=== PATIENT | female | born 1965 | race Caucasian/White ===

== ENCOUNTER 2016-07-24 12:21 | Observation (INO) | payer BC ==
[~2016-07-24] VITALS: Ht 165.1 cm; Wt 71.1 kg
[~2016-07-24 12:21] MED LIST: LOSA50TA6 PO; TYLOTC500 PO
[2016-07-24] MEDS ORDERED: ASPI81TA28 PO (12:41)
[2016-07-24] MEDS ORDERED: LOSA1TAB38 PO (12:41)
[2016-07-24 13:28] LABS: BASO % 0.3 %; BASO ABS # 0.02 K/uL (0-0.2); COMPLETE YES; EOS % 0.8 %; HEMATOCRIT 40.2 % (37-47); IG% 0.1 %; LYMPH % 29.7 %; LYMPH ABS # 2.28 K/uL (1.2-3.4); MEAN CELL VOLUME 81.5 fL (80-100); MEAN CORPUSCULAR HGB CONC 34.3 g/dl (32-36); MEAN PLATELET VOLUME 9.3 fL (7.4-10.4); MONO % 5.5 %; NEUT % 63.6 %; PLATELET COUNT 398 K/uL (130-400); RED BLOOD COUNT 4.93 M/uL (4.2-5.4); WHITE BLOOD COUNT 7.67 K/uL (4.8-10.8)
--- NOTE | 2016-07-24 13:31 | DIAGNOSTIC IMAGING REPORT ---
CT SCAN OF THE BRAIN WITHOUT IV CONTRAST CLINICAL HISTORY: Blurred vision. Slurred speech. COMPARISON STUDY: CT of the brain dated 07/14/2014. TECHNIQUE: Unenhanced axial CT scan of the brain is performed from the vertex to the skull base. Automated dose control exposure was utilized. CT DOSE: 638.56 mGycm FINDINGS: Brain parenchyma: The brain parenchyma is normal in appearance. There is no hemorrhage, mass effect, or evidence of acute territorial ischemia by CT criteria. Garvey-white matter is preserved. No extra-axial fluid collection is seen. Ventricles, sulci, cisterns: Normal in configuration. Intracranial vasculature: The visualized intracranial vasculature at the skull base is normal in appearance. Calvarium: A tiny osteoma is incidentally noted arising from the left frontal bone on image #14. No destructive calvarial lesion is seen. Sinuses and mastoids: The visualized paranasal sinuses are clear. The mastoid air cells are well pneumatized. Orbits: The bony orbits are grossly intact. IMPRESSION: No acute intracranial abnormality. Electronically signed by: Ari Gonzalez M.D. 07/24/2016 1:30 PM Dictated Date/Time: 07/24/2016 1:28 PM
--- NOTE | 2016-07-24 13:41 | DIAGNOSTIC IMAGING REPORT ---
CHEST ONE VIEW PORTABLE CLINICAL HISTORY: Chest pain. COMPARISON STUDY: No previous studies for comparison. FINDINGS: The patient is rotated. Lung volumes are normal. There is no consolidation to suggest pneumonia. There is no evidence of pulmonary edema. Pulmonary vascularity is normal. Cardiomediastinal silhouette is normal. IMPRESSION: No acute cardiopulmonary findings. Electronically signed by: Hermann Cruz M.D. 07/24/2016 1:40 PM Dictated Date/Time: 07/24/2016 1:39 PM
[2016-07-24 13:53] LABS: BUN/CREATININE RATIO 18.1 (10-20); CALCIUM 9.1 mg/dl (8.5-10.1); CREATININE 0.65 mg/dl (0.60-1.20); MAGNESIUM 2.1 mg/dl (1.8-2.4); POTASSIUM 3.7 mmol/L (3.5-5.1)
[2016-07-24 14:04] LABS: ALB/GLOB RATIO 1.3 (0.9-2); CKMB/CK RATIO 0.7 (0-3.0); THYROID STIMULATING HORMONE 1.59 uIu/ml (0.300-4.500)
--- NOTE | 2016-07-24 16:16 | EMERGENCY ROOM VISIT NOTE ---
History First contact with patient: 12:36 Chief Complaint: CARDIAC ASSESSMENT Stated Complaint: CHEST PAIN, LEFT ARM NUMBNESS, NAUSEA, LIGHTHEADED Nursing Triage Summary: "I have been under a lot of stress lately at my place of work. symptoms seem to have increased over the past couple days." History of Present Illness The patient is a 51 year old female who presents to the Emergency Room with complaints of central chest pressure for the past one week. The patient states she has had intermittent chest pressure as well for an occasional sharp pain under her left breast. She states that the symptoms occur occasionally throughout the day and last for 10-15 minutes each episode. She reports that yesterday, she developed numbness and tingling in her left arm. She has had associated nausea, dizziness and lightheadedness. The patient reports a history of hypertension and takes Cozaar for this. 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 She saw a security officer supervisor at that time, but has not seen a security officer supervisor since then. She does not smoke. She reports she is otherwise healthy. She has a family history of cardiac disease, but only at a very old age. She denies any syncopal episodes, palpitations, vomiting or abdominal pain. She does report that over the past several weeks, she has had a few episodes of slurred speech. She has seen her primary care provider regarding this and was told that she needed to get more sleep. She denies headaches or neck pain. Review of Systems A complete 10 point review of systems was reviewed with the patient with pertinent positives and negatives as per history of present illness. All else were negative. Past Medical/Surgical History Medical Problems: (1) Hypertension (2) Migraines Surgical Problems: (1) No significant past surgical history Social History Smoking Status: Never Smoker Alcohol Use: occasionally Marital Status: Occupation Status: employed Current/Historical Medications Scheduled Losartan Potassium (Cozaar), 100 MG PO QAM Scheduled PRN Acetaminophen (Tylenol), 1,000 MG PO Q6 PRN for Pain Aspirin (Aspirin Ec), 81 MG PO UD PRN for CHEST PAIN Allergies Coded Allergies: No Known Allergies (Unverified , 07/14/14) Physical Exam Vital Signs Date Time Temp Pulse Resp B/P Pulse Ox O2 Delivery O2 Flow Rate FiO2 07/24/16 14:02 67 16 137/79 99 Room Air 07/24/16 12:44 98 Room Air 07/24/16 12:43 67 07/24/16 12:43 98 Room Air 07/24/16 12:41 69 18 156/98 99 Room Air 07/24/16 12:24 36.8 90 18 178/106 99 Room Air Physical Exam VITALS: Vitals are noted on the nurse's note and reviewed by myself. Vital signs stable. GENERAL: This is a 51-year-old female, in no acute distress, nondiaphoretic, well-developed well-nourished. SKIN: Capillary reflex less than 2 seconds. HEENT: Normocephalic. PERRLA. EOMI. Nares patent. Mucous membranes moist. Neck is supple without nuchal rigidity. HEART: Regular rate and rhythm without murmurs gallops or rubs. LUNGS: Clear to auscultation bilaterally without wheezes, rales or rhonchi. MUSCULOSKELETAL: Strength 5/5 in bilateral upper extremities. NEURO: Patient was alert and oriented to person place and time. Normal sensation to light and sharp touch. No focal neurological deficits. Medical Decision & Procedures ER Provider Diagnostic Interpretation: CHEST ONE VIEW PORTABLE FINDINGS: The patient is rotated. Lung volumes are normal. There is no consolidation to suggest pneumonia. There is no evidence of pulmonary edema. Pulmonary vascularity is normal. Cardiomediastinal silhouette is normal. IMPRESSION: No acute cardiopulmonary findings. CT SCAN OF THE BRAIN WITHOUT IV CONTRAST FINDINGS: Brain parenchyma: The brain parenchyma is normal in appearance. There is no hemorrhage, mass effect, or evidence of acute territorial ischemia by CT criteria. Garvey-white matter is preserved. No extra-axial fluid collection is seen. Ventricles, sulci, cisterns: Normal in configuration. Intracranial vasculature: The visualized intracranial vasculature at the skull base is normal in appearance. Calvarium: A tiny osteoma is incidentally noted arising from the left frontal bone on image #14. No destructive calvarial lesion is seen. Sinuses and mastoids: The visualized paranasal sinuses are clear. The mastoid air cells are well pneumatized. Orbits: The bony orbits are grossly intact. IMPRESSION: No acute intracranial abnormality. Laboratory Results 07/24/16 12:37 Red Blood Count 4.93, Mean Corpuscular Volume 81.5, Mean Corpuscular Hemoglobin 28.0, Mean Corpuscular Hemoglobin Concent 34.3, Mean Platelet Volume 9.3, Neutrophils (%) (Auto) 63.6, Lymphocytes (%) (Auto) 29.7, Monocytes (%) (Auto) 5.5, Eosinophils (%) (Auto) 0.8, Basophils (%) (Auto) 0.3, Neutrophils # (Auto) 4.88, Lymphocytes # (Auto) 2.28, Monocytes # (Auto) 0.42, Eosinophils # (Auto) 0.06, Basophils # (Auto) 0.02 07/24/16 12:37 Test 07/24/16 12:37 07/24/16 14:38 White Blood Count 7.67 K/uL (4.8-10.8) Red Blood Count 4.93 M/uL (4.2-5.4) Hemoglobin 13.8 g/dL (12.0-16.0) Hematocrit 40.2 % (37-47) Mean Corpuscular Volume 81.5 fL (80-100) Mean Corpuscular Hemoglobin 28.0 pg (25-34) Mean Corpuscular Hemoglobin Concent 34.3 g/dl (32-36) Platelet Count 398 K/uL (130-400) Mean Platelet Volume 9.3 fL (7.4-10.4) Neutrophils (%) (Auto) 63.6 % Lymphocytes (%) (Auto) 29.7 % Monocytes (%) (Auto) 5.5 % Eosinophils (%) (Auto) 0.8 % Basophils (%) (Auto) 0.3 % Neutrophils # (Auto) 4.88 K/uL (1.4-6.5) Lymphocytes # (Auto) 2.28 K/uL (1.2-3.4) Monocytes # (Auto) 0.42 K/uL (0.11-0.59) Eosinophils # (Auto) 0.06 K/uL (0-0.5) Basophils # (Auto) 0.02 K/uL (0-0.2) RDW Standard Deviation 38.3 fL (36.4-46.3) RDW Coefficient of Variation 12.8 % (11.5-14.5) Immature Granulocyte % (Auto) 0.1 % Immature Granulocyte # (Auto) 0.01 K/uL (0.00-0.02) Anion Gap 8.0 mmol/L (3-11) Est Creatinine Clear Calc Drug Dose 104.7 ml/min Estimated GFR () 120.8 Estimated GFR (Non- 104.3 BUN/Creatinine Ratio 18.1 (10-20) Calcium Level 9.1 mg/dl (8.5-10.1) Magnesium Level 2.1 mg/dl (1.8-2.4) Total Bilirubin 0.5 mg/dl (0.2-1) Aspartate Amino Transf (AST/SGOT) 12 U/L (15-37) Alanine Aminotransferase (ALT/SGPT) 25 U/L (12-78) Alkaline Phosphatase 63 U/L (45-117) Total Creatine Kinase 69 U/L (26-192) Creatine Kinase MB 0.5 ng/ml (0.5-3.6) Creatine Kinase MB Ratio 0.7 (0-3.0) Total Protein 8.0 gm/dl (6.4-8.2) Albumin 4.5 gm/dl (3.4-5.0) Globulin 3.5 gm/dl (2.5-4.0) Albumin/Globulin Ratio 1.3 (0.9-2) Thyroid Stimulating Hormone (TSH) 1.590 uIu/ml (0.300-4.500) Bedside Troponin I 0.000 ng/ml (0-0.045) ED Course The patient was evaluated as above. Labs were drawn and IV access was obtained. Patient was reevaluated and was resting comfortably. Findings were discussed with the patient and a 90 minute troponin was drawn at this time. I spoke with Dr. Schwartz to request a stress test, but he will not be able to perform one today. I discussed options of care with the patient including admission for further testing versus discharge. She will be [facility] to the [facility]. Case was discussed with the [facility] hospitalist, Hanna Magallon. They agreed to evaluate the patient for admission. Medical Decision Differential diagnosis includes acute coronary syndrome, pulmonary embolism, pneumothorax, pericarditis, myocarditis, endocarditis, anxiety, musculoskeletal pain, GERD, costochondritis, pneumonia, among others. The patient is a 51-year-old female who presents today complaining of central chest pain intermittently over the past 1 week. Labs revealed no leukocytosis, anemia or concerning electrolyte abnormalities. TSH was within normal limits. EKG was interpreted by myself and shows normal sinus rhythm without acute ischemia or ectopy. Chest x-ray was unremarkable. A CT of the head was performed due to the patient's subjective history of slurred speech. Troponin 2 were negative. The patient's symptoms are concerning for a cardiac cause and I do feel she needs further testing. I recommended admission for further cardiac workup and the patient was agreeable to this. She was admitted to the [facility] service for further evaluation. The patient's case was reviewed with Dr. Lagos, ED attending physician, who agreed with my assessment and treatment plan. Impression Primary Impression: Central chest pain Departure Information Dispostion Admitted as an inpatient Condition GOOD Referrals Chase Tanner M.D. (PCP) Patient Instructions My [facility]
[2016-07-24] MEDS ORDERED: ACETAMINOPHEN 325 MG TAB PO PRN (16:30)
[2016-07-24] MEDS ORDERED: NITROGLYCERIN 0.4 MG SL PER TAB CHARGE SL PRN (16:30)
[2016-07-24] MEDS ORDERED: ONDANSETRON INJ 2 MG/ML 2 ML VIAL IV PRN (16:30)
[2016-07-24] MEDS ORDERED: IV FLUIDS COMPLETED PRN (16:30)
[2016-07-24] MEDS ORDERED: NAPR-1169 PO (16:35)
[2016-07-24] MEDS ORDERED: CALC600T9 PO (16:35)
[2016-07-24] MEDS ORDERED: LORA-741 PO (16:37)
[2016-07-24] MEDS ORDERED: LORAZEPAM 0.5 MG TAB PO PRN (16:45)
[2016-07-24] MEDS ORDERED: LORAZEPAM 0.5 MG TAB PO SCH (16:45)
[2016-07-24 16:52] LABS: PROTHROMBIN TIME (PATIENT) 10.7 SECONDS (9.0-12.0)
[2016-07-24 17:15] VITALS: BP 151/92; PULSE 83; TEMP 36.9; O2SAT 95; Ht 165.1 cm; Wt 71.1 kg
--- NOTE | 2016-07-24 17:16 | History and Physical ---
History & Physical Date & Time of Service: July 24, 2016 at 16:47 Chief Complaint: Chest Pain, Left Arm Numbness, Nausea, Lightheaded Primary Care Physician: Chase Tanner M.D. History of Present Illness Source: patient, clinic records This is a 51 y/o female with PMH of HTN who presents to the ED for chest pain. Patient reports chest discomfort intermittent x 1 week described as "dull ache" in central chest, occasional radiation under L breast or to her back. Pain is sometimes worse after eating. She tried taking Tums without relief. She reports associated fatigue, nausea, poor appetite intermittent "band like" upper abdominal pain. Had 1 episode diarrhea few days ago-resolved. Thought she had " a bug". Reports increased stress/ anxiety lately due to her job. She reports intermittent JOHNS's and neck tension especially when anxious. Was seen by PCP on and was prescribed Ativan which helped the anxiety. She does feel anxious currently being in the ER. Had slurred speech 2 weeks ago which resolved. She noted left hand and left toes numbness yesterday which resolved. Patient can climb 1-2 flights of stairs without BECKHAM. Denies fever, chills, URI symptoms, cough, SOB, palpitations, acid reflux, vomiting, urinary changes, calf pain, edema, rash. No recent travel or heavy lifting. No hx of CAD. Had AV block around 2009 attributed to Toprol which resolved with discontinuation of the med. She had a stress echo in 2009 which was neg. No hx of DM or HL. Past Medical/Surgical History Medical Problems: (1) Anxiety Status: Chronic (2) Epilepsy Permanent Comment: one seizure 1985, off meds Status: Chronic (3) Hypertension Status: Chronic (4) Migraines Status: Chronic Surgical Problems: (1) H/O foot surgery Status: Chronic (2) History of dental surgery Status: Chronic (3) S/P hysterectomy Status: Chronic Family History Cardiac disorder SISTER (? arrythmia, alive and well) No family history of CAD or sudden cardiac . Social History Smoking Status: Never Smoker Alcohol Use: none Drug Use: none Marital Status: Housing status: lives with family Occupational Status: employed Allergies Coded Allergies: No Known Allergies (Unverified , 07/14/14) Home Medications Scheduled Calcium Carbonate-Vitamin D (Calcium + D), 2 TABS PO DAILY Losartan Potassium (Cozaar), 100 MG PO QAM Scheduled PRN Aspirin (Aspirin Ec), 81 MG PO UD PRN for CHEST PAIN Lorazepam (Ativan), 0.5 MG PO TID PRN for Anxiety Naproxen (Naprosyn), 500 MG PO BID PRN for Pain Review of Systems Ten systems reviewed and negative except as noted in HPI. Physical Exam Vital Signs Date Time Temp Pulse Resp B/P Pulse Ox O2 Delivery O2 Flow Rate FiO2 07/24/16 16:32 71 16 149/86 97 Room Air 07/24/16 14:02 67 16 137/79 99 Room Air 07/24/16 12:44 98 Room Air 07/24/16 12:43 67 07/24/16 12:43 98 Room Air 07/24/16 12:41 69 18 156/98 99 Room Air 07/24/16 12:24 36.8 90 18 178/106 99 Room Air General Appearance: WD/WN, + pertinent finding (alert cooperative 51 year old female, moderately anxious but not in distress) Head: normocephalic, atraumatic Eyes: normal inspection, PERRL, EOMI ENT: hearing grossly normal, pharynx normal Neck: supple, trachea midline Respiratory/Chest: chest non-tender, lungs clear, normal breath sounds, no respiratory distress, no accessory muscle use Cardiovascular: regular rate, rhythm, no murmur Abdomen/GI: normal bowel sounds, soft, + pertinent finding (mld tenderness in LUQ. no guarding. ) Extremities/Musculoskelatal: normal inspection, no calf tenderness, no pedal edema Neurologic/Psych: alert, oriented x 3, + pertinent finding (anxious. no facial droop. no dysarthria. no focal motor/ sensory deficit. ) Skin: normal color, warm/dry, no rash (no rash on the chest) Diagnostics Laboratory Results Results Past 24 Hours Test 07/24/16 12:37 07/24/16 13:06 07/24/16 14:38 Range/Units White Blood Count 7.67 4.8-10.8 K/uL Red Blood Count 4.93 4.2-5.4 M/uL Hemoglobin 13.8 12.0-16.0 g/dL Hematocrit 40.2 37-47 % Mean Corpuscular Volume 81.5 80-100 fL Mean Corpuscular Hemoglobin 28.0 25-34 pg Mean Corpuscular Hemoglobin Concent 34.3 32-36 g/dl Platelet Count 398 130-400 K/uL Mean Platelet Volume 9.3 7.4-10.4 fL Neutrophils (%) (Auto) 63.6 % Lymphocytes (%) (Auto) 29.7 % Monocytes (%) (Auto) 5.5 % Eosinophils (%) (Auto) 0.8 % Basophils (%) (Auto) 0.3 % Neutrophils # (Auto) 4.88 1.4-6.5 K/uL Lymphocytes # (Auto) 2.28 1.2-3.4 K/uL Monocytes # (Auto) 0.42 0.11-0.59 K/uL Eosinophils # (Auto) 0.06 0-0.5 K/uL Basophils # (Auto) 0.02 0-0.2 K/uL RDW Standard Deviation 38.3 36.4-46.3 fL RDW Coefficient of Variation 12.8 11.5-14.5 % Immature Granulocyte % (Auto) 0.1 % Immature Granulocyte # (Auto) 0.01 0.00-0.02 K/uL Sodium Level 141 136-145 mmol/L Potassium Level 3.7 3.5-5.1 mmol/L Chloride Level 106 98-107 mmol/L Carbon Dioxide Level 27 21-32 mmol/L Anion Gap 8.0 3-11 mmol/L Blood Urea Nitrogen 12 7-18 mg/dl Creatinine 0.65 0.60-1.20 mg/dl Est Creatinine Clear Calc Drug Dose 104.7 ml/min Estimated GFR () 120.8 Estimated GFR (Non- 104.3 BUN/Creatinine Ratio 18.1 10-20 Random Glucose 95 70-99 mg/dl Calcium Level 9.1 8.5-10.1 mg/dl Magnesium Level 2.1 1.8-2.4 mg/dl Total Bilirubin 0.5 0.2-1 mg/dl Aspartate Amino Transf (AST/SGOT) 12 15-37 U/L Alanine Aminotransferase (ALT/SGPT) 25 12-78 U/L Alkaline Phosphatase 63 45-117 U/L Total Creatine Kinase 69 26-192 U/L Creatine Kinase MB 0.5 0.5-3.6 ng/ml Creatine Kinase MB Ratio 0.7 0-3.0 Total Protein 8.0 6.4-8.2 gm/dl Albumin 4.5 3.4-5.0 gm/dl Globulin 3.5 2.5-4.0 gm/dl Albumin/Globulin Ratio 1.3 0.9-2 Thyroid Stimulating Hormone (TSH) 1.590 0.300-4.500 uIu/ml Bedside Troponin I 0.000 0.000 0-0.045 ng/ml Diagnostic Radiology CT SCAN OF THE BRAIN WITHOUT IV CONTRAST CLINICAL HISTORY: Blurred vision. Slurred speech. COMPARISON STUDY: CT of the brain dated 07/14/2014. TECHNIQUE: Unenhanced axial CT scan of the brain is performed from the vertex to the skull base. Automated dose control exposure was utilized. CT DOSE: 638.56 mGycm FINDINGS: Brain parenchyma: The brain parenchyma is normal in appearance. There is no hemorrhage, mass effect, or evidence of acute territorial ischemia by CT criteria. Garvey-white matter is preserved. No extra-axial fluid collection is seen. Ventricles, sulci, cisterns: Normal in configuration. Intracranial vasculature: The visualized intracranial vasculature at the skull base is normal in appearance. Calvarium: A tiny osteoma is incidentally noted arising from the left frontal bone on image #14. No destructive calvarial lesion is seen. Sinuses and mastoids: The visualized paranasal sinuses are clear. The mastoid air cells are well pneumatized. Orbits: The bony orbits are grossly intact. IMPRESSION: No acute intracranial abnormality. CHEST ONE VIEW PORTABLE CLINICAL HISTORY: Chest pain. COMPARISON STUDY: No previous studies for comparison. FINDINGS: The patient is rotated. Lung volumes are normal. There is no consolidation to suggest pneumonia. There is no evidence of pulmonary edema. Pulmonary vascularity is normal. Cardiomediastinal silhouette is normal. IMPRESSION: No acute cardiopulmonary findings. 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 Slurred speech- unclear etiology - resolved, may defer to PCP for further evaluation HYPERTENSION BP initially elevated likely due to anxiety Now normotensive Continue losartan DVT PROPHYLAXIS Lovenox SQ DISPOSITION Observation to tele F/w Dr. Tanner for primary care Patient seen in collaboration with Dr. Alexander. Please see his addendum. ADDENDUM: This is a 51 year old female with a PMH of HTN, anxiety presents with chest pressure, left upper extremity numbness/tingling. States that the chest pressure /epigastric pressure began this morning; but she also had a cluster of symptoms that concerned her, including numbness/tingling of the upper extremity and a one month hx. of intermittent slurring of speech. She saw her primary care and was given Ativan due to perceived anxiety/stressors at work which may be contributing to her stress. She is a nursing secretary working on the computer/keyboard , and she states her L wrist/hand numbness/tingling could be attributed to computer work. Her pain and symptoms have subsided since presenting to the ER. VITALS: Last Vital Signs Documentation Date Time Temp Pulse Resp B/P Pulse Ox O2 Delivery O2 Flow Rate FiO2 07/24/16 17:15 36.9 83 18 151/92 95 Room Air GEN: no acute distress CVS: +S1, S2, RRR LUNGS: CTA b/l, no wheezing ABD: +tenderness to palpation, epigastric NEURO: no focal deficits Chest pain r/o ACS will trend enzymes, r/o ACS EKG with no ST-T wave changes possible stress in AM cont. Ativan for possible anxiety etiology VTE Prophylaxis VTE Risk Assessment Done? Y/N: Yes Risk Level: Low
[2016-07-24 20:00] VITALS: BP 151/89; PULSE 75; TEMP 36.2; O2SAT 95
[2016-07-24 21:56] LABS: URINE APPEARANCE CLEAR (CLEAR); URINE BILIRUBIN NEG (NEG); URINE COLOR YELLOW; URINE NITRITE NEG (NEG); URINE PH 7.5 (4.5-7.5); URINE SPECIFIC GRAVITY 1.018 (1.000-1.030); UROBILINOGEN NEG (NEG); ZZUR CULT IF INDIC CLEAN CATCH YES
[2016-07-24 21:57] LABS: MANUAL MICROSCOPIC REQUIRED? NO; PREG INTERNAL NEGATIVE QC NEG CLEAR BACKGROUND; PREG INTERNAL POSITIVE QC POS CONTROL LINE; REVIEW REQ? NO
[2016-07-24 23:08] VITALS: BP 106/69; PULSE 77; TEMP 36.1; O2SAT 97
[2016-07-25] VITALS: O2SAT 95
[2016-07-25 04:00] VITALS: O2SAT 95
[2016-07-25 07:18] VITALS: BP 114/81; PULSE 69; TEMP 37; O2SAT 97
[2016-07-25 08:40] LABS: CHOLESTEROL/HDL RATIO 4.3
[2016-07-25] MEDS ORDERED: LOSARTAN POTASSIUM 50 MG TAB PO SCH (09:00)
[2016-07-25] MEDS ORDERED: ASPIRIN 81 MG ECTAB PO SCH (09:00)
[2016-07-25] MEDS ORDERED: ENOXAPARIN 40 MG/0.4 ML SYR SC SCH (09:00)
[2016-07-25] MEDS ORDERED: CALCIUM 600MG + VIT D 400 IU TAB PO SCH (09:00)
--- NOTE | 2016-07-25 10:17 | Cardiology Consultation ---
Cardiology Consultation Date of Service July 25, 2016. (Frances Ramirez PA-C) Cardiology Consultation Attending Jd Edwards: Dr. Schwartz Requesting Provider: Hanna Magallon PA-C HPI: Patient is a 51 year old female with PMH significant for hypertension presented to the ER yesterday with complaints of waxing/waning chest pressure x 1 week. She describes the symptoms as an epigastric/substernal pressure. No change with exertional activities. Mild radiation to her back at times. She felt as if this was GI/indigestion induced, and has been avoiding spicy foods. No improvement with TUMS. She has not had prior EGD. Also noted intermittent nausea and diarrhea this week. Lauren as if her symptoms were a "Bug". s+She also ntoed intermittent left hand tingling over the last few weeks. No worsening SOB, changes to her functional capacity, exertional chest pain, palpitations, orthopnea, PND or LE edema. No history of coronary disease, myocardial infarction or diabetes mellitus. She noted reduced exercise tolerance with dyspnea and chest pain with running in 2009 and saw cardiology at [facility] for her symptoms. Toprol was stopped (used for HTN) and she underwent exercise stress test at that time. Stress test was negative for inducible ischemia. Symptoms resolved with discontinuing Toprol. At time of consult, patient states her symptoms had resoled when she awoke, but now returning. Pain is located in the epigastric region. Feels nauseous since not eating this AM and with "empty stomach". She admits to being anxious and wanting to be discharged. she also notes she has been under a great deal of stress at work. This correlates to onset of her symptoms. She saw PCP earlier this week and was prescribed Ativan which aided her symptoms. No SOB. No radiation of her current discomfort. No sense of palpitations or tachypalpitations. No orthopnea, PND or edema. No fever, cough, chills. Review of Systems: See HPI for pertinent positives. All other 10 point review of systems is negative. Past Medical History GENERALIZED CONVULSIVE EPILEPSY; WITHOUT MENTION OF INTRACTABLE EPILEPSY - Off meds > 15 years HTN, goal below 140/90 Past Surgical History Dental surgery procedure nec Dilation and curettage (d&c) Colonoscopy Family History: No family history of premature coronary artery disease or sudden cardiac . [place] in his 70's or 80's. pacemaker around that age Social History: No history of tobacco or alcohol use. Reported Home Medications Medications Dose Route/Sig Max Daily Dose Days Date Category Ativan (Lorazepam) 0.5 Mg Tab 0.5 Mg PO TID PRN 07/24/16 Reported Calcium + D (Calcium Carbonate-Vitamin D) 1 Tab Tab 2 Tabs PO DAILY 07/24/16 Reported Naprosyn (Naproxen) 500 Mg Tab 500 Mg PO BID PRN 07/24/16 Reported Aspirin Ec (Aspirin) 81 Mg Tab 81 Mg PO UD PRN 07/24/16 Reported Cozaar (Losartan Potassium) 100 Mg Tab 100 Mg PO QAM 07/24/16 Reported Physical Examination: Last 8 Hrs Date Time Temp Pulse Resp B/P Pulse Ox O2 Delivery O2 Flow Rate FiO2 07/25/16 07:48 Room Air 07/25/16 07:18 37.0 69 18 114/81 97 07/25/16 04:00 95 Room Air Constitutional: well nourished, well developed, no acute distress, physically fit HEENT: normal: normocephalic, atraumatic; no masses, tenderness, or adenopathy Neck: supple, JVP normal, normal carotid pulses without bruits CV: normal rate and rhythm, no murmur, gallops or rub Chest: lungs clear Abdomen: soft, normal bowel sounds, no tenderness Extremities: no edema Neuro: alert, oriented to person, place, and time DATA: EKG on admission Normal sinus rhythm Cannot rule out Anterior infarct , age undetermined Abnormal ECG No previous ECGs available Imaging: Head CT on admission: IMPRESSION: No acute intracranial abnormality. Chest xray on admission: IMPRESSION: No acute cardiopulmonary findings Telemetry reviewed - NSR with rare PVC in the 60's. No arrhythmias. LABS: Last 24 Hours Test 07/24/16 12:37 07/24/16 13:06 07/24/16 14:38 07/24/16 19:15 White Blood Count 7.67 K/uL Red Blood Count 4.93 M/uL Hemoglobin 13.8 g/dL Hematocrit 40.2 % Mean Corpuscular Volume 81.5 fL Mean Corpuscular Hemoglobin 28.0 pg Mean Corpuscular Hemoglobin Concent 34.3 g/dl Platelet Count 398 K/uL Mean Platelet Volume 9.3 fL Neutrophils (%) (Auto) 63.6 % Lymphocytes (%) (Auto) 29.7 % Monocytes (%) (Auto) 5.5 % Eosinophils (%) (Auto) 0.8 % Basophils (%) (Auto) 0.3 % Neutrophils # (Auto) 4.88 K/uL Lymphocytes # (Auto) 2.28 K/uL Monocytes # (Auto) 0.42 K/uL Eosinophils # (Auto) 0.06 K/uL Basophils # (Auto) 0.02 K/uL RDW Standard Deviation 38.3 fL RDW Coefficient of Variation 12.8 % Immature Granulocyte % (Auto) 0.1 % Immature Granulocyte # (Auto) 0.01 K/uL Prothrombin Time 10.7 SECONDS Prothromb Time International Ratio 1.0 Activated Partial Thromboplast Time 25.7 SECONDS Partial Thromboplastin Ratio 1.0 Sodium Level 141 mmol/L Potassium Level 3.7 mmol/L Chloride Level 106 mmol/L Carbon Dioxide Level 27 mmol/L Anion Gap 8.0 mmol/L Blood Urea Nitrogen 12 mg/dl Creatinine 0.65 mg/dl Est Creatinine Clear Calc Drug Dose 104.7 ml/min Estimated GFR () 120.8 Estimated GFR (Non- 104.3 BUN/Creatinine Ratio 18.1 Random Glucose 95 mg/dl Calcium Level 9.1 mg/dl Magnesium Level 2.1 mg/dl Total Bilirubin 0.5 mg/dl Aspartate Amino Transf (AST/SGOT) 12 U/L Alanine Aminotransferase (ALT/SGPT) 25 U/L Alkaline Phosphatase 63 U/L Total Creatine Kinase 69 U/L 64 U/L Creatine Kinase MB 0.5 ng/ml < 0.5 ng/ml Creatine Kinase MB Ratio 0.7 Total Protein 8.0 gm/dl Albumin 4.5 gm/dl Globulin 3.5 gm/dl Albumin/Globulin Ratio 1.3 Lipase 154 U/L Thyroid Stimulating Hormone (TSH) 1.590 uIu/ml Bedside Troponin I 0.000 ng/ml 0.000 ng/ml Troponin I < 0.015 ng/ml Test 07/24/16 21:40 07/25/16 00:47 07/25/16 07:53 Urine Color YELLOW Urine Appearance CLEAR Urine pH 7.5 Urine Specific [place] 1.018 Urine Protein NEG Urine Glucose (UA) NEG Urine Ketones NEG Urine Occult Blood TRACE Urine Nitrite NEG Urine Bilirubin NEG Urine Urobilinogen NEG Urine Leukocyte Esterase NEG Urine WBC (Auto) 1-5 /hpf Urine RBC (Auto) 10-30 /hpf Urine Hyaline Casts (Auto) 0 /lpf Urine Epithelial Cells (Auto) 10-20 /lpf Urine Bacteria (Auto) 1+ Urine Test NEG Total Creatine Kinase 59 U/L Creatine Kinase MB < 0.5 ng/ml Creatine Kinase MB Ratio Troponin I < 0.015 ng/ml Triglycerides Level 96 mg/dl Cholesterol Level 170 mg/dl HDL Cholesterol 40 mg/dl LDL Cholesterol, Calculated 111 mg/dl VLDL Cholesterol, Calculated 19 mg/dl Cholesterol/HDL Ratio 4.3 Impression: 1. Atypical chest pain, -not indicative of ACS -Negative cardiac enzymes x3 -non ischemic EKG -exercise stress echo recommended this AM for evaluation and r/o ischemic heart disease -if stress test is normal, consider GI etiology based on symptoms or anxiety 2. Hypertension - controlled. Continue home medications 3. Left hand tingling, possibly suggestive of carpal tunnel -CT of head negative Case discussed with Dr. Schwartz. Further recommendations pending review of stress testing results. (Frances Ramirez PA-C) Cardiology attending: Pt seen and examined, agree with findings and assessment as per Frances Dukes. Nonischemic stress echocardiogram. Noncardiac discomfort. No further cardiac testing or follow up from cardiac standpoint. (Bhavin Schwartz, D.O.)
[2016-07-25 11:40] VITALS: BP 116/79; PULSE 83
--- NOTE | 2016-07-25 11:54 | Progress Note ---
Subjective Date of Service: July 25, 2016. Subjective Pt evaluation today including: conversation w/ patient, physical exam, lab review, review of studies, review of inpatient medication list Saw/examined the patient in room 278 States her symptoms have resolved, no chest pain/shortness of breath No numbness/tingling of the left arm Problem List Medical Problems: (1) Central chest pain Status: Acute Review of Systems Respiratory: No shortness of breath Cardiac: No chest pain Abdomen: No diarrhea, No nausea, No pain, No vomiting Heme: No abnormal bleeding/bruising Medications Current Inpatient Medications Medications (Trade) Dose Ordered Sig/Evan Route Start Time Stop Time Status Last Admin Dose Admin Miscellaneous (Iv Fluids Completed) 1 ea PRN PRN N/A 07/24/16 16:30 07/24/17 16:29 Enoxaparin Sodium (Lovenox Inj) 40 mg Q24H SC 07/25/16 09:00 08/24/16 08:59 Acetaminophen (Tylenol Tab) 650 mg Q4H PRN PO 07/24/16 16:30 08/23/16 16:29 07/24/16 19:40 650 MG Ondansetron HCl (Zofran Inj) 4 mg Q6H PRN IV 07/24/16 16:30 08/23/16 16:29 Nitroglycerin (Nitrostat Tab) 0.4 mg UD PRN SL 07/24/16 16:30 08/23/16 16:29 Aspirin (Ecotrin Tab) 81 mg QAM PO 07/25/16 09:00 08/24/16 08:59 Lorazepam (Ativan Tab) 0.5 mg TID PRN PO 07/24/16 16:45 08/23/16 16:44 Losartan Potassium (coZAAR TAB) 100 mg QAM PO 07/25/16 09:00 08/24/16 08:59 07/25/16 09:00 100 MG Calcium/Vitamin D (Caltrate Plus Tab) 2 tab DAILY PO 07/25/16 09:00 08/24/16 08:59 Objective Vital Signs Date Time Temp Pulse Resp B/P Pulse Ox O2 Delivery O2 Flow Rate FiO2 07/25/16 11:40 83 116/79 07/25/16 07:48 Room Air 07/25/16 07:18 37.0 69 18 114/81 97 07/25/16 04:00 95 Room Air 07/25/16 00:00 95 Room Air 07/24/16 23:08 36.1 77 18 106/69 97 Room Air 07/24/16 20:00 36.2 75 18 151/89 95 Room Air 07/24/16 20:00 95 Room Air 07/24/16 17:15 36.9 83 18 151/92 95 Room Air 07/24/16 16:32 71 16 149/86 97 Room Air 07/24/16 14:02 67 16 137/79 99 Room Air 07/24/16 12:44 98 Room Air 07/24/16 12:43 67 07/24/16 12:43 98 Room Air 07/24/16 12:41 69 18 156/98 99 Room Air 07/24/16 12:24 36.8 90 18 178/106 99 Room Air Physical Exam General Appearance: no apparent distress Respiratory/Chest: chest non-tender, lungs clear, normal breath sounds, no respiratory distress, no accessory muscle use Cardiovascular: regular rate, rhythm, no edema, no murmur Extremities: non-tender, normal inspection, no pedal edema Neurologic/Psychiatric: no motor/sensory deficits, alert, normal mood/affect Skin: normal color Lymphatic: no adenopathy Laboratory Results Last 24 Hours Test 07/24/16 12:37 07/24/16 13:06 07/24/16 14:38 07/24/16 19:15 White Blood Count 7.67 K/uL Red Blood Count 4.93 M/uL Hemoglobin 13.8 g/dL Hematocrit 40.2 % Mean Corpuscular Volume 81.5 fL Mean Corpuscular Hemoglobin 28.0 pg Mean Corpuscular Hemoglobin Concent 34.3 g/dl Platelet Count 398 K/uL Mean Platelet Volume 9.3 fL Neutrophils (%) (Auto) 63.6 % Lymphocytes (%) (Auto) 29.7 % Monocytes (%) (Auto) 5.5 % Eosinophils (%) (Auto) 0.8 % Basophils (%) (Auto) 0.3 % Neutrophils # (Auto) 4.88 K/uL Lymphocytes # (Auto) 2.28 K/uL Monocytes # (Auto) 0.42 K/uL Eosinophils # (Auto) 0.06 K/uL Basophils # (Auto) 0.02 K/uL RDW Standard Deviation 38.3 fL RDW Coefficient of Variation 12.8 % Immature Granulocyte % (Auto) 0.1 % Immature Granulocyte # (Auto) 0.01 K/uL Prothrombin Time 10.7 SECONDS Prothromb Time International Ratio 1.0 Activated Partial Thromboplast Time 25.7 SECONDS Partial Thromboplastin Ratio 1.0 Sodium Level 141 mmol/L Potassium Level 3.7 mmol/L Chloride Level 106 mmol/L Carbon Dioxide Level 27 mmol/L Anion Gap 8.0 mmol/L Blood Urea Nitrogen 12 mg/dl Creatinine 0.65 mg/dl Est Creatinine Clear Calc Drug Dose 104.7 ml/min Estimated GFR () 120.8 Estimated GFR (Non- 104.3 BUN/Creatinine Ratio 18.1 Random Glucose 95 mg/dl Calcium Level 9.1 mg/dl Magnesium Level 2.1 mg/dl Total Bilirubin 0.5 mg/dl Aspartate Amino Transf (AST/SGOT) 12 U/L Alanine Aminotransferase (ALT/SGPT) 25 U/L Alkaline Phosphatase 63 U/L Total Creatine Kinase 69 U/L 64 U/L Creatine Kinase MB 0.5 ng/ml < 0.5 ng/ml Creatine Kinase MB Ratio 0.7 Total Protein 8.0 gm/dl Albumin 4.5 gm/dl Globulin 3.5 gm/dl Albumin/Globulin Ratio 1.3 Lipase 154 U/L Thyroid Stimulating Hormone (TSH) 1.590 uIu/ml Bedside Troponin I 0.000 ng/ml 0.000 ng/ml Troponin I < 0.015 ng/ml Test 07/24/16 21:40 07/25/16 00:47 07/25/16 07:53 Urine Color YELLOW Urine Appearance CLEAR Urine pH 7.5 Urine Specific [place] 1.018 Urine Protein NEG Urine Glucose (UA) NEG Urine Ketones NEG Urine Occult Blood TRACE Urine Nitrite NEG Urine Bilirubin NEG Urine Urobilinogen NEG Urine Leukocyte Esterase NEG Urine WBC (Auto) 1-5 /hpf Urine RBC (Auto) 10-30 /hpf Urine Hyaline Casts (Auto) 0 /lpf Urine Epithelial Cells (Auto) 10-20 /lpf Urine Bacteria (Auto) 1+ Urine Test NEG Total Creatine Kinase 59 U/L Creatine Kinase MB < 0.5 ng/ml Creatine Kinase MB Ratio Troponin I < 0.015 ng/ml Triglycerides Level 96 mg/dl Cholesterol Level 170 mg/dl HDL Cholesterol 40 mg/dl LDL Cholesterol, Calculated 111 mg/dl VLDL Cholesterol, Calculated 19 mg/dl Cholesterol/HDL Ratio 4.3 Assessment and Plan This is a 51 year old female with a PMH of HTN, anxiety presents with chest pressure, left upper extremity numbness/tingling. Chest pain r/o ACS 07/25 stress test performed - negative no further cardiac testing will d/c home with outpatient PCP follow-up Prilosec OTC on discharge 07/24 will trend enzymes, r/o ACS EKG with no ST-T wave changes possible stress in AM cont. Ativan for possible anxiety etiology Anxiety cont. PRN Ativan dose Left Hand Numbness possibly carpal tunnel syndrome HTN cont. Losartan DVT ppx Lovenox SQ FULL CODE
[2016-07-25] MEDS ORDERED: OMEP20TA14 PO (11:55)
--- NOTE | 2016-07-25 11:56 | Discharge Instructions ---
Discharge Instructions Date of Service July 25, 2016. Admission Reason for Admission: Chest Pain Discharge Discharge Diagnosis / Problem: Chest Pain - likely GERD; indigestion Discharge Goals Goal(s): Decrease discomfort, Improve function, Diagnostic testing, Therapeutic intervention Activity Recommendations Activity Limitations: resume your previous activity . Instructions / Follow-Up Instructions / Follow-Up Please follow-up with Dr. Zeng on July 30 at 1:00PM * Take Prilosec over the counter 20mg, one tablet daily * May need testing for carpal tunnel syndrome on left side Current Hospital Diet Patient's current hospital diet: AHA Diet (Heart Healthy), Gluten Free Diet Discharge Diet Recommended Diet: Gluten Free Diet Pending Studies Studies pending at discharge: no Laboratory Results Lipid Panel Test 07/25/16 07:53 Range/Units Triglycerides Level 96 0-150 mg/dl Cholesterol Level 170 0-200 mg/dl HDL Cholesterol 40 mg/dl Cholesterol/HDL Ratio 4.3 LDL Cholesterol, Calculated 111 mg/dl Medical Emergencies . Who to Call and When: Medical Emergencies: If at any time you feel your situation is an emergency, please call 911 immediately. . Non-Emergent Contact Non-Emergency issues call your: Primary Care Provider . . "Provider Documentation" section prepared by Miguel Alexander. . VTE Core Measure Inpt VTE Proph given/why not?: Enoxaparin (Lovenox)SQ
--- NOTE | 2016-07-25 11:58 | Discharge Summary ---
Discharge Summary Date of Service July 25, 2016. Discharge Summary Admission Date: July 24, 2016 at 15:56 Discharge Date: July 25, 2016 Discharge Disposition: Home Principal Diagnosis: Chest Pain, likely GERD Medication Reconciliation New Medications: Omeprazole Magnesium (Prilosec Otc) 20 Mg Tab 1 TAB PO DAILY for 30 Days, #30 TAB 3 Refills Continued Medications: Aspirin (Aspirin Ec) 81 Mg Tab 81 MG PO UD PRN for CHEST PAIN Calcium Carbonate-Vitamin D (Calcium + D) 1 Tab Tab 2 TABS PO DAILY Lorazepam (Ativan) 0.5 Mg Tab 0.5 MG PO TID PRN for Anxiety, TAB Losartan Potassium (Cozaar) 100 Mg Tab 100 MG PO QAM, TAB Naproxen (Naprosyn) 500 Mg Tab 500 MG PO BID PRN for Pain, TAB Admission Information HPI (per Admitting provider): This is a 51 y/o female with PMH of HTN who presents to the ED for chest pain. Patient reports chest discomfort intermittent x 1 week described as "dull ache" in central chest, occasional radiation under L breast or to her back. Pain is sometimes worse after eating. She tried taking Tums without relief. She reports associated fatigue, nausea, poor appetite intermittent "band like" upper abdominal pain. Had 1 episode diarrhea few days ago-resolved. Thought she had " a bug". Reports increased stress/ anxiety lately due to her job. She reports intermittent JOHNS's and neck tension especially when anxious. Was seen by PCP on and was prescribed Ativan which helped the anxiety. She does feel anxious currently being in the ER. Had slurred speech 2 weeks ago which resolved. She noted left hand and left toes numbness yesterday which resolved. Patient can climb 1-2 flights of stairs without BECKHAM. Denies fever, chills, URI symptoms, cough, SOB, palpitations, acid reflux, vomiting, urinary changes, calf pain, edema, rash. No recent travel or heavy lifting. No hx of CAD. Had AV block around 2009 attributed to Toprol which resolved with discontinuation of the med. She had a stress echo in 2009 which was neg. No hx of DM or HL. Physical Exam (per Admitting): General Appearance: WD/WN, + pertinent finding (alert cooperative 51 year old female, moderately anxious but not in distress) Head: normocephalic, atraumatic Eyes: normal inspection, PERRL, EOMI ENT: hearing grossly normal, pharynx normal Neck: supple, trachea midline Respiratory/Chest: chest non-tender, lungs clear, normal breath sounds, no respiratory distress, no accessory muscle use Cardiovascular: regular rate, rhythm, no murmur Abdomen/GI: normal bowel sounds, soft, + pertinent finding (mld tenderness in LUQ. no guarding. ) Extremities/Musculoskelatal: normal inspection, no calf tenderness, no pedal edema Neurologic/Psych: alert, oriented x 3, + pertinent finding (anxious. no facial droop. no dysarthria. no focal motor/ sensory deficit. ) Skin: normal color, warm/dry, no rash (no rash on the chest) Hospital Course This is a 51 year old female with a PMH of HTN, anxiety presents with chest pressure, left upper extremity numbness/tingling. Chest pain r/o ACS 07/25 stress test performed - negative no further cardiac testing will d/c home with outpatient PCP follow-up Prilosec OTC on discharge 07/24 will trend enzymes, r/o ACS EKG with no ST-T wave changes possible stress in AM cont. Ativan for possible anxiety etiology Anxiety cont. PRN Ativan dose Left Hand Numbness possibly carpal tunnel syndrome HTN cont. Losartan DVT ppx Lovenox SQ FULL CODE Total time spent on discharge = 20 minutes This includes examination of the patient, discharge planning, medication reconciliation, and communication with other providers. Discharge Instructions Please follow-up with Dr. Zeng on July 30 at 1:00PM * Take Prilosec over the counter 20mg, one tablet daily * May need testing for carpal tunnel syndrome on left side
[2016-07-25 12:07] VITALS: BP 116/79; PULSE 83; TEMP 37; O2SAT 97
--- NOTE | 2016-07-25 12:30 | EXERCISE STRESS ECHO ---
*NOTICE TO RECEIVING DEMOCRAT AGENCY This information is strictly Confidential and protected under [place] law. [place] law prohibits you from making any further disclosure of this information unless further disclosure is expressly permitted by the written consent of the person to whom it pertains or is authorized by law. A general authorization for the release of medical or other information is not sufficient for this purpose. Hospital accepts no responsibility if the information is made available to any other person, INCLUDING THE PATIENT. Interpretation Summary * Name: ANTONIO NELSON Study Date: 07/25/2016 09:49 AM BP: 148/94 mmHg * Patient Location: [facility]\S\N278\S\2 HR: 75 * : 1965 (M/d/yyyy) Gender: Female Height: 65 in * Age: 51 yrs Ethnicity: [place] Weight: 157 lb * Ordering Physician: Bhavin Schwartz * Referring Physician: Self, Referred * Performed By: Nikki Henning RDCS * * Reason For Study: CHEST PAIN * BSA: 1.8 m2 * -- Conclusions -- * Nonischemic exercise stress echocardiogram. * No arrhythmias. * Normal HR and BP response to exercise. * Above average exercise tolerance. * At rest, normal LV chamber size and wall thickness. * Normal LV systolic function, EF 60-65%. * No segmental left ventricular wall motion abnormalities are noted. * Normal diastolic function. * No significant valvular pathology. Procedure Details * ECHOEX, CPT #16820 Left Ventricle * The left ventricle is normal in size. * There is normal left ventricular wall thickness. * Left ventricular systolic function is normal. * No segmental left ventricular wall motion abnormalities are noted. * Ejection Fraction = 60-65%. * Resting wall motion: Normal. Stress wall motion: Appropriate increase in Left ventricular systolic function and decrease in cavity size. No stress induced segmental wall motion abnormalities. Right Ventricle * The right ventricular cavity size is normal (basal dimension <4.2 cm in right ventricular apical 4-chamber view). * The right ventricular systolic function is normal as assessed by tricuspid annular plane systolic excursion (TAPSE) (normal >1.5 cm). Atria * The left atrial size is normal. * Right atrial size is normal. * No ASD detected; PFO is not assessed. Mitral Valve * The mitral valve is normal in structure and function. Tricuspid Valve * The tricuspid valve is normal in structure and function. Aortic Valve * The aortic valve is not well visualized. * No hemodynamically significant valvular aortic stenosis. * There is no significant aortic regurgitation. Pulmonic Valve * The pulmonary valve is not well seen, but the Doppler examination is normal without significant regurgitation or stenosis. Great Vessels * The aortic root is normal size. Pericardium * There is no pericardial effusion. Stress Parameters * Normal baseline electrocardiogram. * There was no new ST segment depression. * No arrhythmia were noted with stress. * The stress portion of this study was personally supervised by the undersigned interpreting physician. * Rest heart rate was '75' BPM. * Rest blood pressure was '148/94' * Maximum heart rate achieved was 176 bpm. * Maximum heart rate was 102 % of maximum age-predicted heart rate. * Maximum blood pressure was '168/83' * Total exercise time was '9:12' * Maximum exercise MET level achieved was '10.40' METS * Maximum treadmill speed was '4,20' miles per hour. * Maximum treadmill elevation was '16.00'% grade. * Exercise was terminated due to 'ACHIEVING TARGET HR' Left Ventricular Diastolic Function * Pulse wave TDI of the anterior and posterior mitral annulas demonstrates normal LV relaxation MMode 2D Measurements and Calculations IVSd 0.82 cm IVSs 1.3 cm LVIDd 3.8 cm LVIDs 2.3 cm LVPWd 1.1 cm LVPWs 1.6 cm IVS/LVPW 0.77 FS 38.3 % EDV(Teich) 60.8 ml ESV(Teich) 18.6 ml EF(Teich) 69.4 % EDV(cubed) 53.6 ml ESV(cubed) 12.6 ml EF(cubed) 76.5 % % IVS thick 57.2 % % LVPW thick 47.6 % LV mass(C)d 105.6 grams LV mass(C)dI 59.2 grams/m\S\2 LV mass(C)s 105.0 grams LV mass(C)sI 58.9 grams/m\S\2 SV(Teich) 42.2 ml SI(Teich) 23.6 ml/m\S\2 SV(cubed) 41.0 ml SI(cubed) 23.0 ml/m\S\2 Ao root diam 3.3 cm Ao root area 8.4 cm\S\2 LA dimension 3.0 cm LA/Ao 0.91 LVAd ap4 25.9 cm\S\2 LVLd ap4 8.4 cm EDV(MOD-sp4) 64.5 ml EDV(sp4-el) 67.2 ml LVAs ap4 14.7 cm\S\2 LVLs ap4 7.3 cm ESV(MOD-sp4) 25.6 ml ESV(sp4-el) 25.0 ml EF(MOD-sp4) 60.4 % EF(sp4-el) 62.7 % LVAd ap2 24.9 cm\S\2 LVLd ap2 8.2 cm EDV(MOD-sp2) 62.5 ml EDV(sp2-el) 64.5 ml LVAs ap2 13.5 cm\S\2 LVLs ap2 6.5 cm ESV(MOD-sp2) 23.9 ml ESV(sp2-el) 23.8 ml EF(MOD-sp2) 61.8 % EF(sp2-el) 63.1 % LVLd %diff -3.18 % EDV(MOD-bp) 64.6 ml LVLs %diff -12.71 % ESV(MOD-bp) 25.1 ml EF(MOD-bp) 61.2 % SV(MOD-sp4) 38.9 ml SI(MOD-sp4) 21.8 ml/m\S\2 SV(MOD-sp2) 38.6 ml SI(MOD-sp2) 21.6 ml/m\S\2 SV(MOD-bp) 39.5 ml SI(MOD-bp) 22.2 ml/m\S\2 SV(sp4-el) 42.2 ml SI(sp4-el) 23.6 ml/m\S\2 SV(sp2-el) 40.7 ml SI(sp2-el) 22.8 ml/m\S\2 Doppler Measurements and Calculations MV E max [place] 61.9 cm/sec MV A max [place] 56.2 cm/sec MV E/A 1.1 MV dec time 0.32 sec Ao V2 max 127.5 cm/sec Ao max PG 6.5 mmHg Ao max PG (full) 1.2 mmHg LV V1 max PG 5.3 mmHg LV V1 max 115.0 cm/sec TR max [place] 209.2 cm/sec
== END 2016-07-25 12:30 | disposition home or self-care (01) ==
LOC: ENRESERVTM → ENRESERVDT → C.EDB 12:25 → C.2T 15:56 → MERGE 15:56 → C.MED 19:30
PROVIDERS: ADMIT Family Medicine; ATTEND Family Medicine
DX: R07.9 Chest pain, unspecified (principal); R20.0 Anesthesia of skin; R11.0 Nausea; R42 Dizziness and giddiness; I10 Essential (primary) hypertension; F41.9 Anxiety disorder, unspecified; G40.909 Epilepsy, unspecified, not intractable, without status epilepticus; Z79.82 Long term (current) use of aspirin; Z79.899 Other long term (current) drug therapy; Z90.710 Acquired absence of both cervix and uterus; Z98.890 Other specified postprocedural states

== ENCOUNTER 2016-08-11 08:28 | Emergency (ER) | payer BC ==
[~2016-08-11] VITALS: Ht 165.1 cm; Wt 72.7 kg
[~2016-08-11 08:28] MED LIST changes: +ASPI81TA28 PO; +CALC600T9 PO; +LORA-741 PO; +LOSA1TAB38 PO; -LOSA50TA6 PO; +NAPR-1169 PO; +OMEP20TA14 PO; -TYLOTC500 PO
[2016-08-11 08:32] VITALS: TEMP 36.6; Ht 165.1 cm; Wt 72.7 kg
[2016-08-11] MEDS ORDERED: SODIUM CHLORIDE 0.9% 1000ML 1,000 ML IV STA (08:53)
[2016-08-11] MEDS ORDERED: MoRPHine SULFATE 10 MG/ML CARP/VIAL IV STA (08:53)
[2016-08-11] MEDS ORDERED: METOCLOPRAMIDE HCL INJ 5 MG/ML 2 ML VIAL IV STA (08:53)
[2016-08-11] MEDS ORDERED: OPTIRAY 320 IV PRN (09:00)
--- NOTE | 2016-08-11 09:17 | EMERGENCY ROOM VISIT NOTE ---
History Report prepared by Michelle: Judy Flores Under the Supervision of: Dr. Keith Sanderson M.D. First contact with patient: 08:42 Chief Complaint: GI ASSESSMENT Stated Complaint: ABD. PAIN, BLEEDING FROM RECTUM History of Present Illness The patient is a 51 year old female who presents to the Emergency Room for a GI assessment for symptoms that started last night. She is experiencing intermittent bilateral lower abdominal pain that she describes as cramping. She states that the pain started last night along with nausea. The patient states that she experienced diarrhea last night and began to experience rectal bleeding this morning. She states that only blood comes out whenever she tries to have a bowel movement. The patient has never experienced these symptoms in the past. The patients most recent colonoscopy was a couple years ago and she had polyps removed. She states that she has a family history of colon cancer so she gets colonoscopies done every 3 years. The patient denies any previous abdominal surgeries, any history of diverticulitis, and eating anything questionable or from restaurants yesterday prior to her symptoms starting. Source of History: patient Onset: last night Position: abdomen Quality: other (GI assessment) Timing: intermittent Associated Symptoms: + nausea, + abdominal pain (bilateral, lower, cramping) , + diarrhea Note: rectal bleeding Review of Systems See HPI for pertinent positives & negatives. A total of 10 systems reviewed and were otherwise negative. Past Medical & Surgical Medical Problems: (1) Anxiety (2) Chest pain (3) Epilepsy (4) Hypertension (5) Migraines Surgical Problems: (1) H/O foot surgery (2) History of dental surgery (3) S/P hysterectomy Family History Cardiac disorder SISTER (? arrythmia, alive and well) Social History Smoking Status: Never Smoker Alcohol Use: occasionally Drug Use: none Marital Status: Occupation Status: employed Current/Historical Medications Scheduled Calcium Carbonate-Vitamin D (Calcium + D), 2 TABS PO DAILY Losartan Potassium (Cozaar), 100 MG PO QAM Omeprazole Magnesium (Prilosec Otc), 1 TAB PO DAILY Ondasetron Odt (Zofran Odt), 4 MG SL Q6H Scheduled PRN Lorazepam (Ativan), 0.5 MG PO TID PRN for Anxiety Allergies Coded Allergies: Gluten (Unverified Allergy, Intermediate, ., 08/11/16) Physical Exam Vital Signs Date Time Temp Pulse Resp B/P (MAP) Pulse Ox O2 Delivery O2 Flow Rate FiO2 08/11/16 11:49 59 17 124/84 100 08/11/16 11:33 62 13 100 08/11/16 11:28 68 14 100 08/11/16 11:01 130/79 08/11/16 10:58 62 17 100 08/11/16 10:48 135/87 08/11/16 10:10 148/101 08/11/16 10:03 148/101 08/11/16 09:32 117/76 08/11/16 09:28 69 18 96 08/11/16 09:07 151/103 08/11/16 08:58 74 13 97 08/11/16 08:47 78 08/11/16 08:45 158/96 08/11/16 08:32 36.6 104 16 142/94 99 Room Air Physical Exam GENERAL: Patient is a healthy-appearing well-nourished female HEAD: Normocephalic atraumatic EYES: Ocular movements intact pupils equal and react to light OROPHARYNX mucous membranes are moist no exudates present no erythema or edema present NECK: Supple no nuchal rigidity CHEST: Good equal expansion LUNGS: Clear and equal to auscultation CARDIAC: Normal S1 and S2 ABDOMEN: Soft mildly tender throughout abdomen no guarding BACK: No CVA tenderness EXTREMITIES: No pain upon palpation normal muscle strength in all groups no clubbing cyanosis or edema NEURO: Patient is following commands is answering questions appropriately. Alert and oriented x3 Cranial Nerves 2-12 grossly intact Medical Decision & Procedures ER Provider Diagnostic Interpretation: Radiology results as stated below per my review and radiologist interpretation: ABDOMEN AND PELVIS CT WITH IV CONTRAST FINDINGS: The lung bases are clear. No pneumoperitoneum. No pneumatosis. The liver, gallbladder, pancreas, kidneys, and adrenal glands are unremarkable. There are 2 hypodense lesions within the spleen with the largest measuring 8 mm. These are too small to characterize but likely benign. No retroperitoneal lymphadenopathy. Normal bladder. The uterus is surgically absent. Normal appendix. Mild thickening within the descending colon and proximal sigmoid colon with minimal pericolonic fat stranding. This is consistent with a nonspecific colitis. There are few scattered colonic diverticula. No evidence for bowel obstruction. IMPRESSION: Mild nonspecific colitis involving the descending colon and proximal sigmoid colon. Electronically signed by: Jose Baxter M.D. 08/11/2016 10:54 AM Dictated Date/Time: 08/11/2016 10:49 AM Laboratory Results 08/11/16 09:15 Red Blood Count 4.98, Mean Corpuscular Volume 80.9, Mean Corpuscular Hemoglobin 27.5, Mean Corpuscular Hemoglobin Concent 34.0, Mean Platelet Volume 9.2, Neutrophils (%) (Auto) 81.4, Lymphocytes (%) (Auto) 14.6, Monocytes (%) (Auto) 3.6, Eosinophils (%) (Auto) 0.1, Basophils (%) (Auto) 0.1, Neutrophils # (Auto) 11.29, Lymphocytes # (Auto) 2.03, Monocytes # (Auto) 0.50, Eosinophils # (Auto) 0.02, Basophils # (Auto) 0.02 08/11/16 09:15 Test 08/11/16 09:15 08/11/16 09:24 08/11/16 10:55 White Blood Count 13.89 K/uL (4.8-10.8) Red Blood Count 4.98 M/uL (4.2-5.4) Hemoglobin 13.7 g/dL (12.0-16.0) Hematocrit 40.3 % (37-47) Mean Corpuscular Volume 80.9 fL (80-100) Mean Corpuscular Hemoglobin 27.5 pg (25-34) Mean Corpuscular Hemoglobin Concent 34.0 g/dl (32-36) Platelet Count 356 K/uL (130-400) Mean Platelet Volume 9.2 fL (7.4-10.4) Neutrophils (%) (Auto) 81.4 % Lymphocytes (%) (Auto) 14.6 % Monocytes (%) (Auto) 3.6 % Eosinophils (%) (Auto) 0.1 % Basophils (%) (Auto) 0.1 % Neutrophils # (Auto) 11.29 K/uL (1.4-6.5) Lymphocytes # (Auto) 2.03 K/uL (1.2-3.4) Monocytes # (Auto) 0.50 K/uL (0.11-0.59) Eosinophils # (Auto) 0.02 K/uL (0-0.5) Basophils # (Auto) 0.02 K/uL (0-0.2) RDW Standard Deviation 37.1 fL (36.4-46.3) RDW Coefficient of Variation 12.6 % (11.5-14.5) Immature Granulocyte % (Auto) 0.2 % Immature Granulocyte # (Auto) 0.03 K/uL (0.00-0.02) Est Creatinine Clear Calc Drug Dose 93.1 ml/min Estimated GFR () 112.1 Estimated GFR (Non- 96.7 BUN/Creatinine Ratio 24.4 (10-20) Calcium Level 9.0 mg/dl (8.5-10.1) Total Bilirubin 0.4 mg/dl (0.2-1) Direct Bilirubin < 0.1 mg/dl (0-0.2) Aspartate Amino Transf (AST/SGOT) 14 U/L (15-37) Alanine Aminotransferase (ALT/SGPT) 27 U/L (12-78) Alkaline Phosphatase 67 U/L (45-117) Total Protein 8.4 gm/dl (6.4-8.2) Albumin 4.6 gm/dl (3.4-5.0) Lipase 171 U/L (73-393) Bedside Hemoglobin 14.6 g/dl (12.0-16.0) Bedside Hematocrit 43 % (37-47) Bedside Sodium 141 mEq/L (135-144) Bedside Potassium 3.9 mEq/L (3.3-5.0) Bedside Chloride 103 mEq/L (101-112) Bedside Total CO2 21 mEq/l (24-31) Anion Gap 21.0 mmol/L (16-25) Bedside Blood Urea Nitrogen 18 mg/dl (7-18) Bedside Creatinine 0.6 mg/dl (0.6-1.3) Bedside Glucose (other) 109 mg/dl (70-99) Bedside Ionized Calcium (Nicolette) 1.25 mmol/l (1.12-1.32) Urine Color YELLOW Urine Appearance CLEAR (CLEAR) Urine pH 5.0 (4.5-7.5) Urine Specific [place] 1.016 (1.000-1.030) Urine Protein NEG (NEG) Urine Glucose (UA) NEG (NEG) Urine Ketones NEG (NEG) Urine Occult Blood TRACE (NEG) Urine Nitrite NEG (NEG) Urine Bilirubin NEG (NEG) Urine Urobilinogen NEG (NEG) Urine Leukocyte Esterase NEG (NEG) Urine WBC (Auto) 0 /hpf (0-5) Urine RBC (Auto) 0-4 /hpf (0-4) Urine Hyaline Casts (Auto) 0 /lpf (0-5) Urine Epithelial Cells (Auto) 5-10 /lpf (0-5) Urine Bacteria (Auto) NEG (NEG) Labs reviewed by ED physician. Medications Administered Medications (Trade) Dose Ordered Sig/Evan Route Start Time Stop Time Status Last Admin Dose Admin Sodium Chloride 1,000 ml @ 999 mls/hr Q1H1M STAT IV 08/11/16 08:53 08/11/16 09:53 DC 08/11/16 09:29 999 MLS/HR Morphine Sulfate (MoRPHine SULFATE INJ) 6 mg NOW STAT IV 08/11/16 08:53 08/11/16 08:57 DC 08/11/16 09:32 6 MG Metoclopramide HCl (Reglan Inj) 10 mg NOW STAT IV 08/11/16 08:53 08/11/16 08:57 DC 08/11/16 09:30 10 MG Diphenhydramine HCl (Benadryl Inj) 50 mg NOW STAT IV 08/11/16 09:54 08/11/16 09:55 DC 08/11/16 10:03 50 MG ED Course 0849: Past medical records reviewed. The patient was evaluated in room A4. A complete history and physical examination was performed. 0853: Ordered Reglan Inj 10 mg IV, Morphine Sulfate 6 mg IV, Sodium Chloride 1000 ml @ 999 mls/hr IV 0953: The nurse called and informed me that the patient is having an allergic reaction. 0954: Ordered Benadryl Inj 50 mg IV 0955: I reassessed the patient. She has hives on her arm but she is not experiencing any shortness of breath. 1105: Upon reexamination the patient is doing well. I discussed results and treatment plan with the patient. She verbalizes agreement and understanding. The patient is ready for discharge. Medical Decision Differential diagnosis: Etiologies such as appendicitis, diverticulitis, PUD, biliary pathology, UTI, pancreatitis, obstruction, mesenteric ischemia, aortic pathology, infections, inflammatory bowel disease, renal colic, as well as others were entertained. Medication Reconciliation: I attest that I have personally reviewed the patient' s current medication list. Blood Pressure Screening: Patient was found to have an elevated blood pressure and was referred to their primary care doctor for recheck and further treatment. This is a 51-year-old female who presents emergency Department with nausea vomiting and diarrhea. I will note that the patient was unable to provide a stool sample during her three-hour stay in the emergency department. Her hemoglobin is also higher than normal and appears stable. She was sent for CAT scan of the abdomen pelvis which did not show any acute process. An IV was established, the patient was given normal saline bolus, Zofran. Repeat examination revealed much improvement the patient's symptoms. I do believe that the patient is well enough to be discharged home for follow-up with primary care physician. Patient was in agreement with treatment plan. Impression Primary Impression: Gastroenteritis Scribe Attestation The scribe's documentation has been prepared under my direction and personally reviewed by me in its entirety. I confirm that the note above accurately reflects all work, treatment, procedures, and medical decision making performed by me. Departure Information Dispostion Home / Self-Care Prescriptions Ondasetron Odt (ZOFRAN ODT) 4 Mg Tab 4 MG SL Q6H for Nausea, #6 TAB Prov: Keith Sanderson MD 08/11/16 Referrals Chase Tanner M.D. (PCP) Forms HOME CARE DOCUMENTATION FORM, IMPORTANT VISIT INFORMATION Patient Instructions ED Diet Vomiting Diarrhea, ED Gastroenteritis Report Pend, Hypertension Control , [facility] Additional Instructions Follow up with DR Crum's office Take Probiotic yogurt for diarrhea You were found to have an elevated blood pressure today (>120 sytolic or >90 diastolic). Per medicare guidelines, you need to follow up with this blood pressure screening with your Primary Care Physician (PCP). For a new PCP call [phone]. You received narcotic or benzodiazepine medication while in the emergency room today. Do not drive, operate heavy machinery, or drink alcohol under the influence of this medication. Culture results are usually available in approx 48 hours You have been examined and treated today on an emergency basis only. This is not a substitute for, or an effort to provide, complete comprehensive medical care. It is impossible to recognize and treat all injuries or illnesses in a single emergency department visit. It is therefore important that you follow up closely with DR Tanner. Call as soon as possible for an appointment. Thank you for your time and consideration. I look forward to speaking with you again soon. Please don't hesitate to call us if you have any questions.
[2016-08-11 09:28] LABS: BASO % 0.1 %; BASO ABS # 0.02 K/uL (0-0.2); COMPLETE YES; EOS % 0.1 %; HEMATOCRIT 40.3 % (37-47); IG% 0.2 %; LYMPH % 14.6 %; LYMPH ABS # 2.03 K/uL (1.2-3.4); MEAN CELL VOLUME 80.9 fL (80-100); MEAN CORPUSCULAR HEMOGLOBIN 27.5 pg (25-34); MEAN PLATELET VOLUME 9.2 fL (7.4-10.4); MONO % 3.6 %; NEUT % 81.4 %; PLATELET COUNT 356 K/uL (130-400); RED BLOOD COUNT 4.98 M/uL (4.2-5.4); WHITE BLOOD COUNT 13.89 K/uL (4.8-10.8)
[2016-08-11 09:47] LABS: ALT/SGPT 27 U/L (12-78); AST/SGOT 14 U/L (15-37); BLOOD UREA NITROGEN 18 mg/dl (7-18); BUN/CREATININE RATIO 24.4 (10-20); CARBON DIOXIDE 24 mmol/L (21-32); CHLORIDE 107 mmol/L (98-107); CREATININE 0.73 mg/dl (0.60-1.20); GLUCOSE 105 mg/dl (70-99); POTASSIUM 3.8 mmol/L (3.5-5.1); SODIUM 140 mmol/L (136-145)
[2016-08-11 09:49] LABS: ISTAT CREATININE 0.6 mg/dl (0.6-1.3); ISTAT HEMOGLOBIN 14.6 g/dl (12.0-16.0); ISTAT IONIZED CALCIUM 1.25 mmol/l (1.12-1.32)
[2016-08-11 09:50] LABS: ALKALINE PHOSPHATASE 67 U/L (45-117)
[2016-08-11] MEDS ORDERED: DiphenhydrAMINE HCL 50 MG/ML VIAL IV STA (09:54)
--- NOTE | 2016-08-11 10:55 | DIAGNOSTIC IMAGING REPORT ---
ABDOMEN AND PELVIS CT WITH IV CONTRAST CT DOSE: 392.68 mGy.cm HISTORY: Diffuse abdominal pain. TECHNIQUE: Multiaxial CT images of the abdomen and pelvis were performed following the use of intravenous contrast. COMPARISON STUDY: None. FINDINGS: The lung bases are clear. No pneumoperitoneum. No pneumatosis. The liver, gallbladder, pancreas, kidneys, and adrenal glands are unremarkable. There are 2 hypodense lesions within the spleen with the largest measuring 8 mm. These are too small to characterize but likely benign. No retroperitoneal lymphadenopathy. Normal bladder. The uterus is surgically absent. Normal appendix. Mild thickening within the descending colon and proximal sigmoid colon with minimal pericolonic fat stranding. This is consistent with a nonspecific colitis. There are few scattered colonic diverticula. No evidence for bowel obstruction. IMPRESSION: Mild nonspecific colitis involving the descending colon and proximal sigmoid colon. Electronically signed by: Jose Baxter M.D. 08/11/2016 10:54 AM Dictated Date/Time: 08/11/2016 10:49 AM
[2016-08-11 11:15] LABS: URINE APPEARANCE CLEAR (CLEAR); URINE BILIRUBIN NEG (NEG); URINE COLOR YELLOW; URINE NITRITE NEG (NEG); URINE SPECIFIC GRAVITY 1.016 (1.000-1.030); UROBILINOGEN NEG (NEG)
[2016-08-11 11:16] LABS: MANUAL MICROSCOPIC REQUIRED? NO; REVIEW REQ? NO
[2016-08-11] MEDS ORDERED: ONDA4TAB10 SL (11:22)
[2016-08-11 11:49] VITALS: BP 124/84; PULSE 59; O2SAT 100
== END 2016-08-11 11:51 | disposition home or self-care (01) ==
LOC: C.EDB 08:29 → MERGE 08:29 → C.EDA 11:51
DX: K52.9 Noninfective gastroenteritis and colitis, unspecified (principal); F41.9 Anxiety disorder, unspecified; G40.909 Epilepsy, unspecified, not intractable, without status epilepticus; I10 Essential (primary) hypertension

== ENCOUNTER → 2016-08-14 | Outpatient (CLI) | payer BC ==
[~2016-08-14] MED LIST changes: -ASPI81TA28 PO; -NAPR-1169 PO; +ONDA4TAB10 SL
== END | disposition home or self-care (01) ==
LOC: C.LAB 16:13
PROVIDERS: ATTEND Emergency Medicine
DX: R19.7 Diarrhea, unspecified (principal)